=== PATIENT | female | born 1960 | race Two or more races ===

== ENCOUNTER 2020-02-02 14:06 | Emergency (ER) | payer MEDICAID ==
[~2020-02-02] VITALS: Ht 152.4 cm; Wt 64.4 kg
--- NOTE | 2020-02-02 14:43 | NUR ---
ED Nurse Note: Patient walked into ED c/o fell a few months ago and twisted her right ankle. Patient states it currently hurst 6/10 aching pain. Patient AxO x 4, no s/s of acute distress. Patient resting in bed.
--- NOTE | 2020-02-02 14:49 | Emergency Room Report ---
History of Present Illness General Chief Complaint: Lower Extremity Injury Source: Patient Present Illness HPI Patient fell 6 months ago. She injured her left shoulder and is pending surgery. At that time she also twisted her right foot. She has had intermittent swelling particularly increased in the morning time. Also in the last few weeks there is been increased pain there. She is not take any medication for the pain. She denies any calf pain or edema. The swelling goes down during the day. The swelling is midfoot on the dorsal side. She denies any numbness. She rates the pain 10/10 at this time. The patient shows a picture she took this morning which reveals swelling midfoot in the area of tenderness. Patient has diabetes controlled on metformin. COVID-19 risk:Travel to affect: No Has patient experienced bocanegra: No Allergies: Coded Allergies: No Known Allergies (Unverified , 02/02/20) Patient History Past Medical History: see triage record, DM Social History: Denies: smoking, alcohol use, drug use Social History Narrative Disabled from left shoulder injury Now: No Reviewed Nursing Documentation: PMH: Agreed; PSxH: Agreed Nursing Documentation-PMH Hx Diabetes: Yes Review of Systems Constitutional: Denies: fever Respiratory: Denies: shortness of breath Endocrine: Reports: see HPI Physical Exam Vital Signs Date Time Temp Pulse Resp B/P (MAP) Pulse Ox O2 Delivery O2 Flow Rate FiO2 02/02/20 14:29 98.4 72 18 130/80 (97) 99 Room Air Sp02 EP Interpretation: reviewed, normal General Appearance: well appearing, no apparent distress, GCS 15 Head: normocephalic Eyes: bilateral eye normal inspection, bilateral eye PERRL ENT: moist mucus membranes Neck: full range of motion, supple Respiratory: normal inspection Cardiovascular #1: regular rate, rhythm, no edema Cardiovascular #2: 2+ radial (R), 2+ dorsalis pedis (R) Gastrointestinal: normal inspection Musculoskeletal: normal range of motion, digits/nails normal, no calf tenderness, tenderness - Dorsum midfoot Neurologic: alert, distal neuro normal Psychiatric: mood/affect normal Skin: no rash, warm/dry - Medical Decision Making Diagnostic Impression: Primary Impression: Foot sprain Qualified Codes: S93.601A - Unspecified sprain of right foot, initial encounter ER Course Patient injured her foot 6 months ago and now has increased pain and swelling. Differential includes sprain, undiagnosed fracture, neuroma amongst others. There is no evidence of DVT at this time. Due to the complexity of the history and finding, a CT scan will be ordered. Patient will be given a dose of Motrin. (Delay for read CT) CT normal in area of concern. Heel spur. Richard applied to foot. Improvement and excellent tension. Distal neurovascular checked by me and normal. Discussed findings and treatment plan with patient. Patient stable for outpatient observation and treatment. CT/MRI/US Diagnostic Results CT/MRI/US Diagnostic Results : Imaging Test Ordered: foot Impression Findings: No evidence of acute fracture. No dislocations. The joint spaces are preserved. No definite soft tissue abnormality. Small corticated ossific density is seen at the anterior corner of the tibia, may reflect an old ununited avulsion fracture. There is a small calcaneal spur. Last Vital Signs Date Time Temp Pulse Resp B/P (MAP) Pulse Ox O2 Delivery O2 Flow Rate FiO2 02/02/20 17:47 98.0 17 128/79 100 Room Air 02/02/20 14:29 72 Status: improved Disposition: HOME, SELF-CARE Condition: Improved Scripts Ibuprofen* (MOTRIN*) 600 Mg Tablet 600 MG ORAL Q8H PRN for For Pain, #20 TAB 0 Refills Prov: Giles Avery MD 02/02/20 Giles Avery MD Feb 02, 2020 14:49
--- NOTE | 2020-02-02 17:22 | Diagnostic Imaging Report ---
Indication: Right foot pain after twisting, intermittent swelling Technique: Spiral acquisitions obtained through the right foot Multiplanar reconstructions were generated. Total dose length product 89 mGycm. CTDIvol(s) 3 mGy. Radiation dose was minimized using automated exposure control Comparison: none Findings: No evidence of acute fracture. No dislocations. The joint spaces are preserved. No definite soft tissue abnormality. Small corticated ossific density is seen at the anterior corner of the tibia, may reflect an old ununited avulsion fracture. There is a small calcaneal spur. Impression: No acute bony trauma Mild chronic changes as described This agrees with the preliminary interpretation provided overnight by [facility]erad[facility] service. The CT scanner at [facility] is accredited by the [employer] and the scans are performed using protocols designed to limit radiation exposure to as low as reasonably achievable to attain images of sufficient resolution adequate for diagnostic evaluation.
[2020-02-02] MEDS ORDERED: IBUPROFEN600 MG ORAL (17:37)
[2020-02-02] MEDS ORDERED: METFORMIN500 MG/5 M PO (17:39)
--- NOTE | 2020-02-02 17:45 | NUR ---
ER DISCHARGE NOTE: Patient is cleared to be discharged per Dr. Avery, pt is aox4, on room air, with stable vital signs. pt was given dc and prescription instructions, pt was able to verbalize understanding, pt id band and iv site removed without complications. pt is able to ambulate with steady gait. pt took all belongings.
[2020-02-02 17:47] VITALS: BP 128/79
== END 2020-02-02 17:45 | disposition home or self-care (01) ==
LOC: EMR 14:59
DX: S93.601A Unspecified sprain of right foot, initial encounter (principal); X50.1XXA Overexertion from prolonged static or awkward postures, initial encounter; Y92.9 Unspecified place or not applicable; E11.9 Type 2 diabetes mellitus without complications; Z79.84 Long term (current) use of oral hypoglycemic drugs
CPT/HCPCS: 73700; Z7502; 99284